=== PATIENT | female | born 1980 | race Caucasian/White ===

== ENCOUNTER 2018-02-18 05:16 | Emergency (ER) | payer OTHER ==
[2018-02-18] MEDS ORDERED: Ondansetron INJ* 2 MG/ML VIAL IV ONE (06:04)
[2018-02-18] MEDS ORDERED: Ketorolac INJ* 30 MG/ML 1 ML VIAL IV PUSH ONE (06:04)
[2018-02-18 06:32] LABS: ABS Basophils 0.1 10^3/ul (0-0.2); ABS Eosinophils 0.2 10^3/ul (0-0.6); ABS Lymphocytes 3.6 10^3/ul (1.0-4.8); ABS Monocytes 0.8 10^3/ul (0-0.8); ABS Neutrophils 6.1 10^3/ul (1.5-7.7); ABS Nucleated RBC 0 10^3/ul; Eosinophil % 1.9 % (0-6); Hematocrit 48 % (35-47); Hemoglobin 16.2 g/dl (12.0-16.0); Lymphocyte % 33.5 % (25-47); Mean Corpuscular HGB Conc 34 g/dl (31-36); Mean Corpuscular Hemoglobin 29 pg (27-31); Mean Corpuscular Volume 86 fL (80-97); Mean Platelet Volume 8.1 um3 (7.4-10.4); Nucleated Red Blood Cells % 0.1; Platelet Count 231 10^3/ul (150-450); Red Blood Count 5.54 10^6/ul (4.00-5.40); Red Cell Distribution Width 15 % (10.5-15); White Blood Count 10.8 10^3/ul (3.5-10.8)
[2018-02-18 06:50] LABS: EGFR Non-African American 71.3 (>60)
[2018-02-18] MEDS ORDERED: Iohexol 300* (CONTRAST) 10 ML SDV IV ONE (08:02)
[2018-02-18] MEDS ORDERED: Morphine INJ* 2 MG/ML 1 ML CARPUJECT IV ONE (08:57)
[2018-02-18] MEDS ORDERED: Iohexol 300* (CONTRAST) 10 ML SDV IV SCH (09:00)
[2018-02-18] MEDS ORDERED: Morphine VIAL* 4 MG/ML VIAL (1 ml vial) IV ONE (09:00)
--- NOTE | 2018-02-18 09:04 | RAD ---
INDICATION: LEFT lower quadrant pain. History of nephrolithiasis. Constipation. Post appendectomy and cholecystectomy. COMPARISON: December 31, 2015 TECHNIQUE: Multidetector CT images were obtained from the lung bases to the ischial tuberosities with 150 mL Omnipaque 350 IV and oral contrast. Multiplanar reformation. REPORT: Unremarkable visualized inferior thorax. Post cholecystectomy. Negative for biliary dilatation. Decreased density of the liver consistent with hepatosteatosis. No focal liver lesions. Unremarkable pancreas and spleen. No CT abnormality of the upper GI or small bowel. Post appendectomy. Enteric contrast extends to the rectum. A few colonic diverticula are noted. Negative for findings of acute diverticulitis. Negative for ascites or free air. Small fat-containing umbilical hernia without inflammatory change. Normal adrenal glands. Symmetric nephrograms and pyelograms. No conspicuous stones, focal renal lesions, or hydronephrosis. Normal variant LEFT extrarenal pelvis. 4 mm stone at the mid LEFT ureter at the cephalocaudal level of the L5-S1 disc space. Mild mural enhancement of the LEFT ureter proximal to the stone. Unremarkable RIGHT ureter. Unremarkable urinary bladder, anteverted uterus, and adnexal regions. Pelvic phleboliths noted. Negative for lymphadenopathy. Normal diameter abdominal aorta and iliac arteries. Physiologic distention of the IVC. Unremarkable osseous structures. IMPRESSION: #. 4 mm stone at the mid LEFT ureter at the cephalocaudal level of the L5-S1 disc space. Associated mild mural enhancement of the LEFT ureter proximal to the stone. Negative for significant associated hydronephrosis. #. Hepatosteatosis.
[2018-02-18 09:16] LABS: Urine Appearance Cloudy; Urine Blood 2+ (Negative); Urine Color Yellow; Urine Ketones Negative (Negative); Urine Protein Negative (Negative); Urine Specific Gravity 1.043 (1.010-1.030); Urine Urobilinogen Negative (Negative)
--- NOTE | 2018-02-18 09:24 | ED ---
Abdominal Pain/Female - HPI Summary HPI Summary: Patient is a 37-year-old female presenting to the ED with left-sided lower quadrant pain. She states it started over into the left side of the back and radiated around for into the left lower quadrant. History of diverticulosis without diverticulitis as well as kidney stones. She states this does not feel like her previous kidney stones she was able to sleep last evening and the pain is much lower than before. She also endorses having persistent loose stools due to not having the gallbladder, however with the past few days she has been having constipation. Denies any fevers, sweats, chills. Denies any nausea, vomiting. She states she has been otherwise feeling okay. Denies any gross hematuria or any other urinary symptoms. Abdominal surgical history includes cholecystectomy and appendectomy. Currently on the Depo-Provera injection 4 years and has not had a LMP since that time. Denies any history of ovarian cysts, torsion, ligations or sections. - History of Current Complaint Chief Complaint: EDAbdPain Stated Complaint: LOWER LT ABD PAIN Time Seen by Provider: 02/18/18 05:36 Hx Obtained From: Patient ?: No Onset/Duration: Sudden Onset Timing: Constant Severity Initially: Moderate Severity Currently: Moderate Pain Intensity: 9 Pain Scale Used: 0-10 Numeric Location: Flank Radiates: Yes Radiates to: LLQ Character: Sharp Aggravating Factor(s): Nothing Alleviating Factor(s): Nothing Associated Signs and Symptoms: Positive: Negative. Negative: Blood in Stool, Urinary Symptoms, Decreased Appetite, Vaginal Discharge, Nausea, Vomiting, Diarrhea - Risk Factors Ectopic Risk Factor: Negative Ovarian Torsion Risk Factor: Negative, Reproductive Age Allergies/Adverse Reactions: Allergies Allergy/AdvReac Type Severity Reaction Status Date / Time Penicillins AdvReac Mild See Comment Verified 02/18/18 08:23 PMH/Surg Hx/FS Hx/Imm Hx Previously Healthy: Yes Endocrine/Hematology History: Denies: Hx Diabetes Cardiovascular History: Denies: Hx Hypertension, Hx Pacemaker/ICD History: Reports: Hx Kidney Infection, Hx Kidney Stones Denies: Hx Renal Disease Sensory History: Denies: Hx Hearing Aid Psychiatric History: Denies: Hx Panic Disorder - Surgical History Surgery Procedure, Year, and Place: APPENDECTOMY; GALLBLADDER - Immunization History Hx Pertussis Vaccination: No Immunizations Up to Date: Unable to Obtain/Confirm Infectious Disease History: No Infectious Disease History: Denies: Traveled Outside the [place] in Last 30 Days - Family History Known Family History: Positive: None Family History: R & n/C - Social History Occupation: Unemployed Lives: With Family Alcohol Use: None Hx Substance Use: No Substance Use Type: Reports: None Hx Tobacco Use: Yes Smoking Status (MU): Light Every Day Tobacco Smoker Type: Cigarettes Have You Smoked in the Last Year: Yes Review of Systems Negative: Fever, Chills, Fatigue, Skin Diaphoresis Negative: Epistaxis, Dental Pain Negative: Palpitations, Chest Pain Negative: Shortness Of Breath, Cough Positive: Abdominal Pain. Negative: Vomiting, Diarrhea, Nausea Genitourinary: Negative, Other - no obstructive uropathy symptoms, denies any UTI symptoms Positive: no symptoms reported, see HPI Skin: Negative Neurological: Negative All Other Systems Reviewed And Are Negative: Yes Physical Exam Triage Information Reviewed: Yes Vital Signs On Initial Exam: Initial Vitals Temp Pulse Resp BP Pulse Ox 96.9 F 94 18 171/109 99 02/18/18 05:19 02/18/18 05:19 02/18/18 05:19 02/18/18 05:19 02/18/18 05:19 Vital Signs Reviewed: Yes Appearance: Positive: Well-Nourished Skin: Positive: Warm, Skin Color Reflects Adequate Perfusion Head/Face: Positive: Normal Head/Face Inspection Eyes: Positive: EOMI, JOSHUA, Conjunctiva Clear Neck: Positive: Supple, No Lymphadenopathy Respiratory/Lung Sounds: Positive: Clear to Auscultation, Breath Sounds Present Cardiovascular: Positive: RRR, Pulses are Symmetrical in both Upper and Lower Extremities Abdomen Description: Positive: Other: - Tenderness to the left lower quadrant without CVA tenderness to the left side Bowel Sounds: Positive: Present Musculoskeletal: Positive: Normal Neurological: Positive: Sensory/Motor Intact, Alert, Oriented to Person Place, Time, Speech Normal Psychiatric: Positive: Normal, Affect/Mood Appropriate AVPU Assessment: Alert Diagnostics - Vital Signs Vital Signs Temp Pulse Resp BP Pulse Ox 02/18/18 09:09 18 02/18/18 05:56 77 146/97 97 02/18/18 05:55 84 97 02/18/18 05:19 96.9 F 94 18 171/109 99 - Laboratory Lab Results: Lab Results 02/18/18 02/18/18 02/18/18 Range/Units 06:24 06:24 06:24 WBC 10.8 (3.5-10.8) 10^3/ul RBC 5.54 H (4.00-5.40) 10^6/ul Hgb 16.2 H (12.0-16.0) g/dl Hct 48 H (35-47) % MCV 86 (80-97) fL MCH 29 (27-31) pg MCHC 34 (31-36) g/dl RDW 15 (10.5-15) % Plt Count 231 (150-450) 10^3/ul MPV 8.1 (7.4-10.4) um3 Neut % (Auto) 56.6 (38-83) % Lymph % (Auto) 33.5 (25-47) % Clay % (Auto) 7.2 H (0-7) % Eos % (Auto) 1.9 (0-6) % Baso % (Auto) 0.8 (0-2) % Absolute Neuts (auto) 6.1 (1.5-7.7) 10^3/ul Absolute Lymphs (auto) 3.6 (1.0-4.8) 10^3/ul Absolute Monos (auto) 0.8 (0-0.8) 10^3/ul Absolute Eos (auto) 0.2 (0-0.6) 10^3/ul Absolute Basos (auto) 0.1 (0-0.2) 10^3/ul Absolute Nucleated RBC 0 10^3/ul Nucleated RBC % 0.1 Sodium 140 (135-145) mmol/L Potassium 3.9 (3.5-5.0) mmol/L Chloride 113 H (101-111) mmol/L Carbon Dioxide 21 L (22-32) mmol/L Anion Gap 6 (2-11) mmol/L BUN 10 (6-24) mg/dL Creatinine 0.90 (0.51-0.95) mg/dL Est GFR ( Amer) 86.2 (>60) Est GFR (Non-Af Amer) 71.3 (>60) BUN/Creatinine Ratio 11.1 (8-20) Glucose 108 H (70-100) mg/dL Lactic Acid 0.9 (0.5-2.0) mmol/L Calcium 9.0 (8.6-10.3) mg/dL Magnesium 2.0 (1.9-2.7) mg/dL Total Bilirubin 0.40 (0.2-1.0) mg/dL AST 14 (13-39) U/L ALT 22 (7-52) U/L Alkaline Phosphatase 66 (34-104) U/L C-Reactive Protein 1.52 (<8.01) mg/L Total Protein 6.2 L (6.4-8.9) g/dL Albumin 3.8 (3.2-5.2) g/dL Globulin 2.4 (2-4) g/dL Albumin/Globulin Ratio 1.6 (1-3) Lipase 21 (11.0-82.0) U/L Beta HCG, Quant < 0.60 mIU/mL Urine Color Urine Appearance Urine pH (5-9) Ur Specific [place] (1.010-1.030) Urine Protein (Negative) Urine Ketones (Negative) Urine Blood (Negative) Urine Nitrate (Negative) Urine Bilirubin (Negative) Urine Urobilinogen (Negative) Ur Leukocyte Esterase (Negative) Urine WBC (Auto) (Absent) Urine RBC (Auto) (Absent) Ur Squamous Epith Cells (Absent) Calcium Oxalate Crystal (Absent) Urine Bacteria (Absent) Urine Glucose (Negative) 02/18/18 Range/Units 08:50 WBC (3.5-10.8) 10^3/ul RBC (4.00-5.40) 10^6/ul Hgb (12.0-16.0) g/dl Hct (35-47) % MCV (80-97) fL MCH (27-31) pg MCHC (31-36) g/dl RDW (10.5-15) % Plt Count (150-450) 10^3/ul MPV (7.4-10.4) um3 Neut % (Auto) (38-83) % Lymph % (Auto) (25-47) % Clay % (Auto) (0-7) % Eos % (Auto) (0-6) % Baso % (Auto) (0-2) % Absolute Neuts (auto) (1.5-7.7) 10^3/ul Absolute Lymphs (auto) (1.0-4.8) 10^3/ul Absolute Monos (auto) (0-0.8) 10^3/ul Absolute Eos (auto) (0-0.6) 10^3/ul Absolute Basos (auto) (0-0.2) 10^3/ul Absolute Nucleated RBC 10^3/ul Nucleated RBC % Sodium (135-145) mmol/L Potassium (3.5-5.0) mmol/L Chloride (101-111) mmol/L Carbon Dioxide (22-32) mmol/L Anion Gap (2-11) mmol/L BUN (6-24) mg/dL Creatinine (0.51-0.95) mg/dL Est GFR ( Amer) (>60) Est GFR (Non-Af Amer) (>60) BUN/Creatinine Ratio (8-20) Glucose (70-100) mg/dL Lactic Acid (0.5-2.0) mmol/L Calcium (8.6-10.3) mg/dL Magnesium (1.9-2.7) mg/dL Total Bilirubin (0.2-1.0) mg/dL AST (13-39) U/L ALT (7-52) U/L Alkaline Phosphatase (34-104) U/L C-Reactive Protein (<8.01) mg/L Total Protein (6.4-8.9) g/dL Albumin (3.2-5.2) g/dL Globulin (2-4) g/dL Albumin/Globulin Ratio (1-3) Lipase (11.0-82.0) U/L Beta HCG, Quant mIU/mL Urine Color Yellow Urine Appearance Cloudy Urine pH 6.0 (5-9) Ur Specific [place] 1.043 H (1.010-1.030) Urine Protein Negative (Negative) Urine Ketones Negative (Negative) Urine Blood 2+ A (Negative) Urine Nitrate Negative (Negative) Urine Bilirubin Negative (Negative) Urine Urobilinogen Negative (Negative) Ur Leukocyte Esterase Negative (Negative) Urine WBC (Auto) 2+(11-20/hpf) A (Absent) Urine RBC (Auto) 3+(>10/hpf) A (Absent) Ur Squamous Epith Cells Present A (Absent) Calcium Oxalate Crystal Present A (Absent) Urine Bacteria Absent (Absent) Urine Glucose Negative (Negative) Result Diagrams: 02/18/18 06:24 02/18/18 06:24 Lab Statement: Any lab studies that have been ordered have been reviewed, and results considered in the medical decision making process. Abdominal Pain Fem Course/Dx - Course Course Of Treatment: Discussed treatment options with the patient, she does not feel this is a kidney stone as the pain is much lower and different. She is concerned with a diverticulitis. I have offered a CT abdomen and pelvis without contrast, but she declines and would like the contrast at this time to assess for diverticulitis. Labs obtained and are unremarkable. Urine obtained which shows +3 WBC +[address] abdomen and pelvis shows: IMPRESSION: #. 4 mm stone at the mid LEFT ureter at the cephalocaudal level of the L5-S1 disc space. Associated mild mural enhancement of the LEFT ureter proximal to the stone. Negative for. significant associated hydronephrosis. # . Hepatosteatosis. I've encouraged Flomax, Toradol and nausea medications for at home due to no hydronephrosis and a 4 mm stone that is likely to pass without intervention. However I have given her strict return precautions as well as a follow-up with Dr. Grigsby, urology, as she is seen him several years prior with her kidney stones. She is okay with this plan and discharge. During her course she is given 30 mL Toradol, 4 mg Zofran and 2 mL morphine with good relief of her symptoms. - Diagnoses Differential Diagnosis: Positive: Renal Colic, Urinary Tract Infection Provider Diagnoses: Ureteral stone Discharge - Sign-Out/Discharge Documenting (check all that apply): Discharge/Admit/Transfer - Discharge Plan Condition: Stable Disposition: HOME Prescriptions: Ketorolac TAB * [Toradol TAB *] 10 mg PO Q6H #16 tab Ondansetron ODT TAB* [Zofran 4 MG Odt TAB*] 4 mg PO Q6H PRN #12 tab.odt MDD 4 PRN Reason: Nausea Tamsulosin CAP* [Flomax CAP*] 0.4 mg PO DAILY #5 cap Patient Education Materials: Kidney Stones (ED) Referrals: Alan Glass MD [Primary Care Provider] - Mark Grigsby MD [Medical Doctor] - Additional Instructions: please follow-up with urology for any worsening symptoms Flomax given, this is once daily until passage of stone Strain your urine at this time Toradol up to 4 times daily for pain Do not take ibuprofen while taking this medication! Zofran as needed for nausea - Billing Disposition and Condition Condition: STABLE Disposition: Home
[2018-02-18 09:41] VITALS: BP 142/94
--- NOTE | 2018-02-20 07:39 | ED ---
Progress - Progress Note Progress Note: Patient's final urine culture reveals mixed humphrey; possible contamination. Patient was diagnosed with a kidney stone and no antibiotics were initiated. She was advised to follow-up with urology. No further action at this time. Course/Dx - Course Course Of Treatment: Discussed treatment options with the patient, she does not feel this is a kidney stone as the pain is much lower and different. She is concerned with a diverticulitis. I have offered a CT abdomen and pelvis without contrast, but she declines and would like the contrast at this time to assess for diverticulitis. Labs obtained and are unremarkable. Urine obtained which shows +3 WBC +[address] abdomen and pelvis shows: IMPRESSION: #. 4 mm stone at the mid LEFT ureter at the cephalocaudal level of the L5-S1 disc space. Associated mild mural enhancement of the LEFT ureter proximal to the stone. Negative for. significant associated hydronephrosis. # . Hepatosteatosis. I've encouraged Flomax, Toradol and nausea medications for at home due to no hydronephrosis and a 4 mm stone that is likely to pass without intervention. However I have given her strict return precautions as well as a follow-up with Dr. Grigsby, urology, as she is seen him several years prior with her kidney stones. She is okay with this plan and discharge. During her course she is given 30 mL Toradol, 4 mg Zofran and 2 mL morphine with good relief of her symptoms. - Diagnoses Provider Diagnoses: Ureteral stone Discharge - Sign-Out/Discharge Documenting (check all that apply): Post-Discharge Follow Up - Discharge Plan Condition: Stable Disposition: HOME Prescriptions: Ketorolac TAB * [Toradol TAB *] 10 mg PO Q6H #16 tab Ondansetron ODT TAB* [Zofran 4 MG Odt TAB*] 4 mg PO Q6H PRN #12 tab.odt MDD 4 PRN Reason: Nausea Tamsulosin CAP* [Flomax CAP*] 0.4 mg PO DAILY #5 cap Patient Education Materials: Kidney Stones (ED) Referrals: Alan Glass MD [Primary Care Provider] - Mark Grigsby MD [Medical Doctor] - Additional Instructions: please follow-up with urology for any worsening symptoms Flomax given, this is once daily until passage of stone Strain your urine at this time Toradol up to 4 times daily for pain Do not take ibuprofen while taking this medication! Zofran as needed for nausea - Billing Disposition and Condition Condition: STABLE Disposition: Home
== END 2018-02-18 09:40 | disposition home or self-care (01) ==
LOC: ED 05:16
DX: N20.1 Calculus of ureter (principal); Z87.442 Personal history of urinary calculi; F17.210 Nicotine dependence, cigarettes, uncomplicated; Z79.899 Other long term (current) drug therapy; Z88.0 Allergy status to penicillin; K76.0 Fatty (change of) liver, not elsewhere classified
CPT/HCPCS: 36415; 74177; 80053; 81003; 81015; 83605; 83690; 83735; 84702; 85025; 86140; 87086; 96374; 96375; 99282; J1885; J2270; J2405; Q9967

== ENCOUNTER 2018-03-17 04:36 | Emergency (ER) | payer OTHER ==
[2018-03-17] MEDS ORDERED: NS 0.9% 1000 ML* 1,000 ML IV ONE (04:52)
[2018-03-17] MEDS ORDERED: Ondansetron INJ* 2 MG/ML VIAL IV ONE (04:52)
[2018-03-17] MEDS ORDERED: Ketorolac INJ* 30 MG/ML 1 ML VIAL IV ONE (04:52)
--- NOTE | 2018-03-17 04:58 | ED ---
GI/ HPI - HPI Summary HPI Summary: This is svetlana Gorman documenting for attending Sterling Mojica MD. This patient is a 37 year old F presenting to [facility] with a chief complaint of constant suprapubic pain that she has had for over a week. The patient rates the pain 7/10 in severity. Patient reports chills. Patient denies n/v and fever. Pt states she just finished a course of abx for UTI and has not been able to get to her pcp for a f/u appointment. - History of Current Complaint Chief Complaint: EDUrogenitalProblems Stated Complaint: BLADDER/BACK DISCOMFORT Hx Obtained From: Patient Onset/Duration: Still Present Timing: Constant Severity: Moderate Pain Intensity: 7 Location of Pain: Suprapubic Associated Signs and Symptoms: Negative: Nausea, Vomiting, Fever - Allergy/Home Medications Allergies/Adverse Reactions: Allergies Allergy/AdvReac Type Severity Reaction Status Date / Time Penicillins AdvReac Mild See Comment Verified 02/18/18 08:23 PMH/Surg Hx/FS Hx/Imm Hx Endocrine/Hematology History: Denies: Hx Diabetes Cardiovascular History: Denies: Hx Auto Implanted Cardiovert Defib, Hx Cardiac Arrest, Hx Hypertension, Hx Pacemaker/ICD, Hx Syncope Respiratory History: Denies: Hx Chronic Bronchitis, Hx Chronic Obstructive Pulmonary Disease (COPD ) History: Reports: Hx Kidney Infection, Hx Kidney Stones Denies: Hx Chronic Renal Failure, Hx Renal Disease Sensory History: Denies: Hx Hearing Aid Psychiatric History: Denies: Hx Panic Disorder - Surgical History Surgery Procedure, Year, and Place: APPENDECTOMY; GALLBLADDER Infectious Disease History: No Infectious Disease History: Denies: Traveled Outside the [place] in Last 30 Days - Family History Known Family History: Negative: Respiratory Disease, Seizure Disorder - Social History Alcohol Use: None Hx Substance Use: No Substance Use Type: Reports: None Hx Tobacco Use: Yes Smoking Status (MU): Light Every Day Tobacco Smoker Type: Cigarettes Have You Smoked in the Last Year: Yes Review of Systems Positive: Chills. Negative: Fever Positive: Abdominal Pain. Negative: Vomiting, Nausea All Other Systems Reviewed And Are Negative: Yes Physical Exam - Summary Physical Exam Summary: Appearance: Well appearing, no pain distress Skin: warm, dry, reflects adequate perfusion Head/face: normal Eyes: EOMI, JOSHUA ENT: normal Neck: supple, non-tender Respiratory: CTA, breath sounds present Cardiovascular: RRR, pulses symmetrical Abdomen: TTP in LLQ, soft Bowel: present Musculoskeletal: normal, strength/ROM intact Neuro: normal, sensory motor intact, A&Ox3 Triage Information Reviewed: Yes Vital Signs On Initial Exam: Initial Vitals Temp Pulse Resp BP Pulse Ox 97.7 F 87 18 150/92 98 03/17/18 04:39 03/17/18 04:39 03/17/18 04:39 03/17/18 04:39 03/17/18 04:39 Vital Signs Reviewed: Yes Diagnostics - Vital Signs Vital Signs Temp Pulse Resp BP Pulse Ox 03/17/18 04:39 97.7 F 87 18 150/92 98 - Laboratory Result Diagrams: 03/17/18 05:14 03/17/18 05:14 Lab Statement: Any lab studies that have been ordered have been reviewed, and results considered in the medical decision making process. - CT CT ABD/Pelvis CT Interpretation Completed By: Radiologist - a 4mm left distal ureteral stone with mild hydroureter ED physician has reviewed this radiology report. GIGU Course/Dx - Course Assessment/Plan: This patient is a 37 year old F presenting to [facility] with a chief complaint of constant suprapubic pain that she has had for over a week. The patient rates the pain 7/10 in severity. Patient reports chills. Patient denies n/v and fever. Pt states she just finished a course of abx for UTI and has not been able to get to her pcp for a f/u appointment. CT ABD pelvis reveals, per radiologist, a 4mm left distal ureteral stone with mild hydroureter. Blood work and UA obtained. Patient will be discharged with prescription for flomax and follow up from Dr. Clayton. The patient is agreeable with this plan. - Diagnoses Differential Diagnoses - Female: Cholelithiasis, Diverticulitis, Renal Colic, Urinary Tract Infection, Ureteral Calculi Provider Diagnoses: Renal colic Discharge - Sign-Out/Discharge Documenting (check all that apply): Patient Departure - Discharge Plan Condition: Stable Disposition: HOME Prescriptions: Oxycodone HCl/Acetaminophen [Percocet] 1 tab PO TID #12 tab MDD 3 Tamsulosin CAP* [Flomax CAP*] 0.4 mg PO DAILY #15 cap Referrals: Kahlil Clayton MD [Medical Doctor] - 3 Days Additional Instructions: RETURN TO THE EMERGENCY DEPARTMENT FOR CHANGING OR WORSENING SYMPTOMS - Billing Disposition and Condition Condition: STABLE Disposition: Home
[2018-03-17 05:21] LABS: ABS Basophils 0.1 10^3/ul (0-0.2); ABS Eosinophils 0.2 10^3/ul (0-0.6); ABS Lymphocytes 3.9 10^3/ul (1.0-4.8); ABS Monocytes 0.8 10^3/ul (0-0.8); ABS Neutrophils 5.8 10^3/ul (1.5-7.7); ABS Nucleated RBC 0 10^3/ul; Eosinophil % 2.2 % (0-6); Hematocrit 45 % (35-47); Hemoglobin 15.1 g/dl (12.0-16.0); Lymphocyte % 36.4 % (25-47); Mean Corpuscular HGB Conc 34 g/dl (31-36); Mean Corpuscular Hemoglobin 29 pg (27-31); Mean Corpuscular Volume 87 fL (80-97); Mean Platelet Volume 8.2 um3 (7.4-10.4); Nucleated Red Blood Cells % 0.2; Platelet Count 216 10^3/ul (150-450); Red Blood Count 5.16 10^6/ul (4.00-5.40); Red Cell Distribution Width 14 % (10.5-15); White Blood Count 10.8 10^3/ul (3.5-10.8)
[2018-03-17 05:24] LABS: Urine Appearance Cloudy; Urine Blood Negative (Negative); Urine Color Yellow; Urine Ketones Negative (Negative); Urine Protein Negative (Negative); Urine Specific Gravity 1.016 (1.010-1.030); Urine Urobilinogen Negative (Negative)
[2018-03-17 05:31] LABS: INR 0.88 (0.77-1.02)
[2018-03-17 05:40] LABS: EGFR Non-African American 61.7 (>60)
[2018-03-17] MEDS ORDERED: Tamsulosin CAP* 0.4 MG PO ONE (06:29)
[2018-03-17 06:55] VITALS: BP 119/74
--- NOTE | 2018-03-17 08:14 | RAD ---
Indication: Flank pain on the left. CT of the abdomen and pelvis was performed without oral or IV contrast administration. Comparison is made with previous exam dated December 31, 2015. Coronal and sagittal reconstructed images were obtained. The lung bases demonstrate no pleural fluid, nodules or masses. Heart is of normal size without evidence of pericardial effusion. Liver is normal in size. It is diffusely decreased in density consistent with hepatic steatosis. Patient is status post cholecystectomy. Spleen is normal in size. Pancreas demonstrates no mass or pancreatic duct dilatation. The common duct is not dilated. No adrenal masses are noted. No retroperitoneal adenopathy is noted. No dilated loops of bowel are noted. Colon is filled with stool. CT of the pelvis demonstrates uterus and ovaries to be unremarkable. Urinary bladder is unremarkable. There is a calculus in the left ureter measuring 4 mm. This is distal left ureter approximately 5 cm proximal to the left ureterovesicular junction. There is minimal left hydronephrosis noted. IMPRESSION: Mild left hydronephrosis with 4 mm calculus in the left ureter approximately 5 cm proximal to the left ureterovesicular junction. Right kidney is unremarkable.
== END 2018-03-17 07:06 | disposition home or self-care (01) ==
LOC: ED 04:36
DX: N13.2 Hydronephrosis with renal and ureteral calculous obstruction (principal); F17.210 Nicotine dependence, cigarettes, uncomplicated; Z87.440 Personal history of urinary (tract) infections; Z88.0 Allergy status to penicillin
CPT/HCPCS: 36415; 74176; 80053; 81003; 83690; 84484; 84702; 85025; 85610; 85730; 96361; 96374; 96375; 99283; J1885; J2405

== ENCOUNTER 2018-03-24 00:32 | Emergency (ER) | payer OTHER ==
[2018-03-24] MEDS ORDERED: Metoclopramide IV* 5 MG/ML 2 ML VIAL IV SLOW PU ONE (01:09)
[2018-03-24] MEDS ORDERED: Ketorolac INJ* 30 MG/ML 1 ML VIAL IV PUSH ONE (01:09)
[2018-03-24] MEDS ORDERED: Morphine INJ* 2 MG/ML 1 ML SYRINGE (TWO MG - NEW SYRINGE VERSION) IV ONE (01:10)
[2018-03-24] MEDS ORDERED: NS 0.9% 500 ML* 500 ML IV ONE (01:39)
[2018-03-24 01:51] LABS: ABS Basophils 0.1 10^3/ul (0-0.2); ABS Eosinophils 0.3 10^3/ul (0-0.6); ABS Lymphocytes 4.8 10^3/ul (1.0-4.8); ABS Monocytes 0.9 10^3/ul (0-0.8); ABS Neutrophils 7.3 10^3/ul (1.5-7.7); ABS Nucleated RBC 0 10^3/ul; Hematocrit 45 % (35-47); Hemoglobin 14.9 g/dl (12.0-16.0); Lymphocyte % 35.8 % (25-47); Mean Corpuscular HGB Conc 33 g/dl (31-36); Mean Corpuscular Hemoglobin 29 pg (27-31); Mean Corpuscular Volume 87 fL (80-97); Mean Platelet Volume 7.9 um3 (7.4-10.4); Nucleated Red Blood Cells % 0.1; Platelet Count 236 10^3/ul (150-450); Red Blood Count 5.14 10^6/ul (4.00-5.40); Red Cell Distribution Width 14 % (10.5-15); White Blood Count 13.3 10^3/ul (3.5-10.8)
[2018-03-24 02:06] LABS: EGFR Non-African American 62.4 (>60)
[2018-03-24 02:09] LABS: Urine Appearance Cloudy; Urine Blood 3+ (Negative); Urine Color Yellow; Urine Ketones Negative (Negative); Urine Protein 1+(30 mg/dL) (Negative); Urine Red Blood Cell 3+(>10/hpf) (Absent); Urine Specific Gravity 1.023 (1.010-1.030); Urine Urobilinogen Negative (Negative); Urine White Blood Cell 3+(>20/hpf) (Absent)
[2018-03-24 03:00] VITALS: BP 130/75
[2018-03-24] MEDS ORDERED: NS 0.9% 1000 ML* 1,000 ML IV ONE (03:22)
[2018-03-24] MEDS ORDERED: Levofloxacin TAB* 500 MG PO ONE (03:22)
--- NOTE | 2018-03-24 03:56 | ED ---
GI/ HPI - HPI Summary HPI Summary: This is scribe Micah Tomas documenting for attending Ny Messina M.D. Patient is a 37 y/o F w/ c/o kidney stone. She states she was seen at [facility] last week and diagnosed with kidney stone. She states she was told it would pass but suprapubic pain has been unbearable last 24 hours. She reports pain has been waxing and waning recently but current pain is worst it has ever been. Prescribed percocet has not been helping Sx. Nausea is noted, fever denied. On triage, pain is rated 10/10 and nothing is reported to aggravate/alleviate Sx. Home medications and allergies reviewed. I, Dr. Messina, personally performed the services described in this documentation as scribed in my presence and it is both accurate and complete. - History of Current Complaint Chief Complaint: EDFlankPain Time Seen by Provider: 03/24/18 00:56 Stated Complaint: FLANK PAIN Hx Obtained From: Patient Onset/Duration: Started Days Ago - 24 hours ago onset of current pain Timing: Constant - pain described as waxing and waning but has been constant past 24 hours, Intermittent - pain described as waxing and waning but has been constant past 24 hours Current Severity: Severe - 10/10 Pain Intensity: 10 Location of Pain: Suprapubic Associated Signs and Symptoms: Positive: Nausea. Negative: Fever Aggravating Factor(s): Nothing Alleviating Factor(s): Nothing - Allergy/Home Medications Allergies/Adverse Reactions: Allergies Allergy/AdvReac Type Severity Reaction Status Date / Time Penicillins AdvReac Mild See Comment Verified 03/24/18 00:38 PMH/Surg Hx/FS Hx/Imm Hx Endocrine/Hematology History: Denies: Hx Diabetes Cardiovascular History: Denies: Hx Auto Implanted Cardiovert Defib, Hx Cardiac Arrest, Hx Hypertension, Hx Pacemaker/ICD, Hx Syncope Respiratory History: Denies: Hx Chronic Bronchitis, Hx Chronic Obstructive Pulmonary Disease (COPD ) History: Reports: Hx Kidney Infection, Hx Kidney Stones Denies: Hx Chronic Renal Failure, Hx Renal Disease Sensory History: Denies: Hx Hearing Aid Psychiatric History: Denies: Hx Panic Disorder - Surgical History Surgery Procedure, Year, and Place: APPENDECTOMY; GALLBLADDER Infectious Disease History: No Infectious Disease History: Denies: Traveled Outside the [place] in Last 30 Days - Family History Known Family History: Negative: Respiratory Disease, Seizure Disorder - Social History Alcohol Use: None Hx Substance Use: No Substance Use Type: Reports: None Hx Tobacco Use: Yes Smoking Status (MU): Light Every Day Tobacco Smoker Type: Cigarettes Have You Smoked in the Last Year: Yes Review of Systems Negative: Fever Positive: Abdominal Pain - suprapubic , Nausea All Other Systems Reviewed And Are Negative: Yes Physical Exam - Summary Physical Exam Summary: VITAL SIGNS: Reviewed. GENERAL: Patient is a well-developed and nourished female who is lying comfortable in the stretcher. Patient is not in any acute respiratory distress. HEAD AND FACE: No signs of trauma. No ecchymosis, hematomas or skull depressions. No sinus tenderness. EYES: PERRLA, EOMI x 2, No injected conjunctiva, no nystagmus. EARS: Hearing grossly intact. Ear canals and tympanic membranes are within normal limits. MOUTH: Oropharynx within normal limits. NECK: Supple, trachea is midline, no adenopathy, no JVD, no carotid bruit, no c- spine tenderness, neck with full ROM. CHEST: Symmetric, no tenderness at palpation LUNGS: Clear to auscultation bilaterally. No wheezing or crackles. CVS: Regular rate and rhythm, S1 and S2 present, no murmurs or gallops appreciated. ABDOMEN: Soft, left side CVA tenderness is noted with no other tender areas. No signs of distention. No rebound no guarding, and no masses palpated. Bowel sounds are normal. EXTREMITIES: FROM in all major joints, no edema, no cyanosis or clubbing. NEURO: Alert and oriented x 3. No acute neurological deficits. Speech is normal and follows commands. SKIN: Dry and warm Triage Information Reviewed: Yes Vital Signs On Initial Exam: Initial Vitals Temp Pulse Resp BP Pulse Ox 98.4 F 97 20 161/101 100 03/24/18 00:35 03/24/18 00:35 03/24/18 00:35 03/24/18 00:35 03/24/18 00:35 Vital Signs Reviewed: Yes Diagnostics - Vital Signs Vital Signs Temp Pulse Resp BP Pulse Ox 03/24/18 02:33 81 130/75 97 03/24/18 02:03 75 132/75 97 03/24/18 02:00 76 96 03/24/18 01:52 136/81 03/24/18 01:27 18 03/24/18 01:03 89 188/105 99 03/24/18 00:35 98.4 F 97 20 161/101 100 - Laboratory Lab Results: Lab Results 03/24/18 03/24/18 03/24/18 Range/Units 01:38 01:38 01:56 WBC 13.3 H (3.5-10.8) 10^3/ul RBC 5.14 (4.00-5.40) 10^6/ul Hgb 14.9 (12.0-16.0) g/dl Hct 45 (35-47) % MCV 87 (80-97) fL MCH 29 (27-31) pg MCHC 33 (31-36) g/dl RDW 14 (10.5-15) % Plt Count 236 (150-450) 10^3/ul MPV 7.9 (7.4-10.4) um3 Neut % (Auto) 54.7 (38-83) % Lymph % (Auto) 35.8 (25-47) % [place] % (Auto) 6.9 (0-7) % Eos % (Auto) 2.0 (0-6) % Baso % (Auto) 0.6 (0-2) % Absolute Neuts (auto) 7.3 (1.5-7.7) 10^3/ul Absolute Lymphs (auto) 4.8 (1.0-4.8) 10^3/ul Absolute Monos (auto) 0.9 H (0-0.8) 10^3/ul Absolute Eos (auto) 0.3 (0-0.6) 10^3/ul Absolute Basos (auto) 0.1 (0-0.2) 10^3/ul Absolute Nucleated RBC 0 10^3/ul Nucleated RBC % 0.1 Sodium 138 (135-145) mmol/L Potassium 3.6 (3.5-5.0) mmol/L Chloride 109 (101-111) mmol/L Carbon Dioxide 21 L (22-32) mmol/L Anion Gap 8 (2-11) mmol/L BUN 13 (6-24) mg/dL Creatinine 1.01 H (0.51-0.95) mg/dL Est GFR ( Amer) 75.5 (>60) Est GFR (Non-Af Amer) 62.4 (>60) BUN/Creatinine Ratio 12.9 (8-20) Glucose 116 H (70-100) mg/dL Calcium 9.3 (8.6-10.3) mg/dL Total Bilirubin 0.40 (0.2-1.0) mg/dL AST 18 (13-39) U/L ALT 27 (7-52) U/L Alkaline Phosphatase 58 (34-104) U/L C-Reactive Protein < 1.00 (<8.01) mg/L Total Protein 6.4 (6.4-8.9) g/dL Albumin 4.0 (3.2-5.2) g/dL Globulin 2.4 (2-4) g/dL Albumin/Globulin Ratio 1.7 (1-3) Urine Color Yellow Urine Appearance Cloudy Urine pH 5.0 (5-9) Ur Specific [place] 1.023 (1.010-1.030) Urine Protein 1+(30 mg/dl) A (Negative) Urine Ketones Negative (Negative) Urine Blood 3+ A (Negative) Urine Nitrate Negative (Negative) Urine Bilirubin Negative (Negative) Urine Urobilinogen Negative (Negative) Ur Leukocyte Esterase 1+ A (Negative) Urine WBC (Auto) 3+(>20/hpf) A (Absent) Urine RBC (Auto) 3+(>10/hpf) A (Absent) Ur Squamous Epith Cells Present A (Absent) Calcium Oxalate Crystal Present A (Absent) Urine Bacteria Absent (Absent) Urine Glucose Negative (Negative) Result Diagrams: 03/24/18 01:38 03/24/18 01:38 Lab Statement: Any lab studies that have been ordered have been reviewed, and results considered in the medical decision making process. Re-Evaluation - Re-Evaluation First Eval Re-Evaluation Time: 03:53 Change: Improved Comment: Patient passed kidney stone in the ED. She states she is currently pain free. She will be discharged to home and follow up with urologist in 1-2 days. Patient is agreeable with plan. GIGU Course/Dx - Course Assessment/Plan: Patient is a 37 y/o F w/ c/o kidney stone. She states she was seen at [facility] last week and diagnosed with kidney stone. She states she was told it would pass but suprapubic pain has been unbearable last 24 hours. She reports pain has been waxing and waning recently but current pain is worst it has ever been. Prescribed percocet has not been helping Sx. Nausea is noted, fever denied. On triage, pain is rated 10/10 and nothing is reported to aggravate/alleviate Sx. Physical exam showed left CVA tenderness with no other abnormal findings. During ED course, patient was given fluids, morphine sulfate 4 mg IV ED ONCE, metoclopramide Hcl 10 mg IV SLOW PUSH ONCE, Levofloxacin 500 mg PO ED ONCE, and Ketorolac Tromethamine 30 mg IV PUSH ED ONCE. Labs showed WBC 13.3 H, carbon dioxide 21 L, creatinine 1.01 H. UA showed urine protein 1+( 30 mg/dl) A, urine blood 3+ A, Ur Leukocyte Esterase 1+ A, Urine WBC 3+(>20/hpf ) A, Urine RBC #+(>10/hpf) A, Ur Squamous Epith Cells present, and calcium oxalate crystal present. At 0353, patient passed kidney stone in the ED. She stated she was pain free. She was discharged to home and follow up with urologist in 1-2 days. She was prescribed Levofloxacin TAB* [Levaquin TAB*] 500 mg PO DAILY #7 tab. Patient is agreeable with plan. She was diagnosed with UTI, kidney stone, and renal colic. - Diagnoses Provider Diagnoses: UTI (urinary tract infection), Renal colic, Kidney stone Discharge - Sign-Out/Discharge Documenting (check all that apply): Patient Departure - discharge - Discharge Plan Condition: Stable Disposition: HOME Prescriptions: Levofloxacin TAB* [Levaquin TAB*] 500 mg PO DAILY #7 tab Patient Education Materials: Kidney Stones (ED), Urinary Tract Infection in Women (ED), Renal Colic (ED) Referrals: [facility] [Provider Group] - 2 Days Additional Instructions: Follow up with urologist in 1-2 days. Return to ED for any new or worsening symptoms.
--- NOTE | 2018-03-26 08:58 | ED ---
Progress - Progress Note Progress Note: Patient's urine culture reveals 25-50,000 Genevieve albicans. She reports she is prone to yeast infections and especially when she takes antibiotics. She's been taking an antibiotic for a recent kidney stone and reported symptoms to her PCP of yeast vaginitis. She had Diflucan from a previous yeast infection and took one on Thursday. Her symptoms are persisting so she took another today and plans to follow-up with her PCP regarding these symptoms. No other complaints at this time and she is aware of danger signs and symptoms of when to return the emergency Department. Re-Evaluation - Re-Evaluation First Eval Re-Evaluation Time: 03:53 Change: Improved Comment: Patient passed kidney stone in the ED. She states she is currently pain free. She will be discharged to home and follow up with urologist in 1-2 days. Patient is agreeable with plan. Course/Dx - Diagnoses Provider Diagnoses: UTI (urinary tract infection), Renal colic, Kidney stone Discharge - Sign-Out/Discharge Documenting (check all that apply): Post-Discharge Follow Up - Discharge Plan Condition: Stable Disposition: HOME Prescriptions: Levofloxacin TAB* [Levaquin TAB*] 500 mg PO DAILY #7 tab Patient Education Materials: Kidney Stones (ED), Urinary Tract Infection in Women (ED), Renal Colic (ED) Referrals: [facility] [Provider Group] - 2 Days Additional Instructions: Follow up with urologist in 1-2 days. Return to ED for any new or worsening symptoms. - Billing Disposition and Condition Condition: STABLE Disposition: Home
== END 2018-03-24 04:16 | disposition home or self-care (01) ==
LOC: ED 00:32
DX: N20.0 Calculus of kidney (principal); N39.0 Urinary tract infection, site not specified; F17.210 Nicotine dependence, cigarettes, uncomplicated; Z87.442 Personal history of urinary calculi; Z88.0 Allergy status to penicillin
CPT/HCPCS: 36415; 80053; 81003; 81015; 82365; 85025; 86140; 87077; 87086; 96361; 96374; 96375; 99284; J1885; J2270; J2765

== ENCOUNTER 2023-10-19 07:30 | Observation (INO) ==
[2023-10-20] MEDS ORDERED: Ondansetron 4 mg VIAL 2 MG/ML 2 ml VIAL IV PRN (10:59)
[2023-10-20] MEDS ORDERED: Metoclopramide 5 MG/ML VIAL (10 mg) IV PRN (10:59)
[2023-10-20] MEDS ORDERED: Naloxone 0.4 mg VIAL 0.4 mg/ml 1 ml VIAL IV PRN (10:59)
[2023-10-20] MEDS ORDERED: NS 0.45% 1000 ml BAG 1,000 ML IV SCH (11:00)
[2023-10-21] MEDS ORDERED: ceFAZolin *3* GM in NS PREMIX 3 GM/100 ML BAG IV ONE (06:15)
[2023-10-21] MEDS ORDERED: Scopolamine 1 mg/72hr PATCH ONE (06:15)
[2023-10-21] MEDS ORDERED: Chlorhexidine MOUTHWASH 0.12% 15 ML UDC ONE (06:19)
[2023-10-21] MEDS: Scopolamine 1 mg/72hr PATCH TRANSDERM ONE ×2 (06:24→09:43)
[2023-10-21] MEDS ORDERED: fentaNYL 100 mcg/2 ml 50 MCG/ML VIAL ONE ×3 (06:25→10:04)
[2023-10-21] MEDS ORDERED: Midazolam 2 mg/2 ml VIAL 1 mg/ml 2 ml VIAL (2 mg) ONE (06:25)
[2023-10-21] MEDS ORDERED: Rocuronium 50 mg VIAL 10 mg/ml 5 ml VIAL (50 mg) ONE ×2 (06:25→08:50)
[2023-10-21] MEDS ORDERED: Lidocaine 2% PF 5 ML VIAL ONE ×2 (06:27→09:14)
[2023-10-21] MEDS ORDERED: Propofol 10 MG/ML 20 ML BTL ONE (06:27)
[2023-10-21] MEDS ORDERED: Ondansetron 4 mg VIAL 2 MG/ML 2 ml VIAL ONE (06:27)
[2023-10-21] MEDS ORDERED: Dexamethasone IV 4 MG/ML VIAL 1 ml VIAL ONE (06:27)
[2023-10-21] MEDS ORDERED: Sevoflurane BOTTLE ONE (06:34)
[2023-10-21 06:36] LABS: Rapid COVID-19 Molecular Undetected (Undetected)
[2023-10-21] MEDS ORDERED: Lidocaine 1% w EPI 1:100,000 MDV 20 ML VIAL ONE (07:08)
[2023-10-21] MEDS ORDERED: Thrombin 5,000 UNITS(BOVINE) for Ultrasound Guided Pseudoaneursym ONE (07:08)
[2023-10-21] MEDS ORDERED: ceFAZolin VIAL VIAL ONE (07:09)
[2023-10-21] MEDS ORDERED: Gelfoam Sponge SIZE 100 SPONGE ONE (07:09)
[2023-10-21] MEDS ORDERED: Metoclopramide 5 MG/ML VIAL (10 mg) ONE (08:02)
[2023-10-21] MEDS ORDERED: Phenylephrine IV 10 MG/ML 1 ml VIAL ONE (08:05)
[2023-10-21] MEDS ORDERED: HYDROmorphone 0.5 MG/0.5 ML SYRINGE ONE (08:20)
[2023-10-21] MEDS ORDERED: Benzocaine/Menthol LOZ MT PRN (09:34)
[2023-10-21] MEDS ORDERED: Phenol 1.4% Throat Spray BTL MT PRN (09:34)
[2023-10-21] MEDS ORDERED: Morphine 2 MG/ML SYRINGE IV PRN (09:34)
[2023-10-21] MEDS ORDERED: Ondansetron 4 mg VIAL 2 MG/ML 2 ml VIAL IV PRN (09:34)
[2023-10-21] MEDS ORDERED: Dextran 70/Hypromellose Tears Eye Drops 15 ml BTL (for Artificials Tears) BOTH EYES PRN (09:34)
[2023-10-21] MEDS ORDERED: Magnesium Hydroxide LIQ 30 ML UDC PO PRN (09:34)
[2023-10-21] MEDS ORDERED: Calcium Carb (TUMS) 500 mg CHEW TAB PO PRN (09:34)
[2023-10-21] MEDS ORDERED: Senna TAB 8.6 mg TAB PO PRN (09:34)
[2023-10-21] MEDS: Acetaminophen IV 1 GM/100ML 1,000 MG/100 ML BAG IV ONE (09:42)
[2023-10-21] MEDS: Lactated Ringers 1000 ml BAG 1,000 ML IV SCH ×3 (09:43→12:00)
[2023-10-21] MEDS: Buffered Lidocaine 1% SYRIN 1 ml INTRADERM ONE ×2 (09:43→09:47)
[2023-10-21] MEDS: fentaNYL 100 mcg/2 ml 50 MCG/ML VIAL IV PRN (10:06)
[2023-10-21] MEDS: HYDROcodone/ACETAMIN 5/325 mg TAB PO PRN (22:12)
[2023-10-22 06:49] VITALS: BP 128/90
== END 2023-10-22 09:10 | disposition home or self-care (01) ==
LOC: AA 10-21 05:47 → INTOOBSV 10-21 05:47 → SSU 10-21 10:48
PROVIDERS: ADMIT Neurological Surgery; ATTEND Neurological Surgery